=== PATIENT | female | born 1965 | race Caucasian/White ===

== ENCOUNTER 2018-07-19 15:36 | Emergency (ER) | payer OTHER ==
--- NOTE | 2018-07-19 15:57 | PDOC ---
History of Present Illness - General Chief Complaint: Injury Stated Complaint: FALL HIT RIGHT MID BACK ON BANNISTER Time Seen by Provider: 07/19/18 15:48 - History of Present Illness Initial Comments: 07/19/18 15:57 Chief complaint: Pain right rib cage History of present illness: Patient tripped while walking her dog downstairs, struck her right mid back on the radial. Complains of pain with movement and deep inspiration in the right lateral and posterior rib cage. Review of systems: No fever/chills, cough, anterior chest pain, shortness of breath, nausea, vomiting, diarrhea. Postmenopausal. No visual or focal neurologic symptoms. no other pain or injuries including head neck chest abdomen spine pelvis or extremities. Past medical history: Healthy female, no active medical problems, no medications Social/family history reviewed and noncontributory. Physical exam: Alert and oriented well-developed well-nourished mild distress secondary to rib pain. Cheerful and cooperative Afebrile, vital signs normal HEENT clear Neck without tenderness or deformity, full range of motion without pain Chest clear with full breath sounds throughout bilaterally. No wheezes rales or rhonchi There is tenderness over the mid rib cage on the right, laterally and posteriorly. There is no crepitus or deformity. There is no tenderness on the left side. There is no sternal deformity or tenderness CV S1 and S2 normal without murmur rub or gallop pulses full and symmetric no JVD or edema no bruits Abdomen nondistended. Bowel sounds normal. Soft without mass tenderness organomegaly. No right upper quadrant tenderness. Liver not palpable. No CVAT Neurological C2 to 12 intact no focal sensory or motor deficits. Gait stable and unimpaired Extremities: No visible or palpable trauma LS spine: No tenderness or deformity. Maintenance of normal lumbar lordosis. No erythema or warmth or other sign of inflammation Impression: Probable bruised rib, rule out rib fracture, rule out pulmonary contusion Plan: X-ray and further medical management depending on results. Past History - Past Medical History Allergies/Adverse Reactions: Allergies Allergy/AdvReac Type Severity Reaction Status Date / Time No Known Allergies Allergy Unverified 07/19/18 15:37 Home Medications: Ambulatory Orders Ibuprofen [Motrin -] 600 mg PO TID #20 tablet 07/19/18 Medical Decision Making - Medical Decision Making 07/19/18 16:43 X-rays negative. No rib fractures were identified. Lung wilkinson are clear. Heart shows normal Discussed gentle ice massage, stabilization of the ribs with a pillow when moving, especially arising from bed or from a chair. Motrin as needed. Deep breathing exercises once pain subsides Return to ER if there is increased pain, cough, fever or chills, or congestion. Otherwise follow-up with primary physician 1 week. *DC/Admit/Observation/Transfer Diagnosis at time of Disposition: Contusion of ribs Qualifiers: Encounter type: initial encounter Laterality: right Qualified Code(s): S20.211A - Contusion of right front wall of thorax, initial encounter - Discharge Dispostion Disposition: HOME Condition at time of disposition: Stable Decision to Admit order: No - Prescriptions Prescriptions: Ibuprofen [Motrin -] 600 mg PO TID #20 tablet - Referrals - Patient Instructions Printed Discharge Instructions: DI for Rib Contusion Additional Instructions: Ice massage and Motrin as needed Deep breathing exercises as tolerated Return to ER if there is increased pain, fever or chills, cough or congestion. Otherwise see primary physician for follow-up one week. - Post Discharge Activity
[2018-07-19] MEDS ORDERED: KETOROLAC TROMETHAMINE 60 MG/2 ML VIAL IM ONE (16:02)
[2018-07-19 16:03] VITALS: BP 160/94; PULSE 100; TEMP 97.4; BMI 22.6
[2018-07-19] MEDS ORDERED: KETOROLAC TROMETHAMINE 60 MG/2 ML VIAL ONE (16:06)
== END 2018-07-19 16:52 | disposition home or self-care (01) ==
LOC: FER 15:36
PROC: 3E0233Z Introduction of Anti-inflammatory into Muscle, Percutaneous Approach (ICD-10-PCS; principal; 2018-07-19)
DX: S20.211A Contusion of right front wall of thorax, initial encounter (principal); W18.39XA Other fall on same level, initial encounter; Y93.K1 Activity, walking an animal; Y92.410 Unspecified street and highway as the place of occurrence of the external cause
CPT/HCPCS: 71101-TC-RT-FY; 99282-25